=== PATIENT | male | born 1985 | race Caucasian/White ===

== ENCOUNTER 2022-03-12 12:53 | Emergency (ER) | payer BC ==
--- NOTE | 2022-03-12 12:56 | ERPHSYRPT ---
- History of Present Illness Time Seen by Provider: 03/12/22 12:56 Source: patient Exam Limitations: no limitations Physician History: This is a right-handed white male who was working with heavy shoveling equipment prior to arrival and the equipment kicked back extending the patient's left thumb to a significant degree towards the ulnar side of the left wrist. Patient has a lot of pain in the left thumb area but also has pain when attempting to flex or extend his left hand. There are no lacerations. Patient states he does not want any narcotics at this time. Occurred: just prior to arrival Method of Injury: other (Work equipment injury) Quality: constant, aching, throbbing Severity of Pain-Max: moderate Severity of Pain-Current: moderate Extremities Pain Location: hand: left (But primarily at the thumb) Modifying Factors: Improves With: movement (Worsens) Associated Symptoms: none Allergies/Adverse Reactions: No Known Drug Allergies Allergy (Verified 03/12/22 13:07) Travel Risk - International Travel Have you traveled outside of the country in past 3 weeks: No - Coronavirus Screening Are you exhibiting any of the following symptoms?: No Close contact with a COVID-19 positive Pt in past 14-21 Days: No - Review of Systems Constitutional: No Symptoms Eyes: No Symptoms Ears, Nose, & Throat: No Symptoms Respiratory: No Symptoms Cardiac: No Symptoms Abdominal/Gastrointestinal: No Symptoms Genitourinary Symptoms: No Symptoms Musculoskeletal: Injury (Left hand/thumb), Joint Pain (Left from) Skin: No Symptoms Neurological: No Symptoms Psychological: No Symptoms Endocrine: No Symptoms Hematologic/Lymphatic: No Symptoms Immunological/Allergic: No Symptoms All Other Systems: Reviewed and Negative - Past Medical History Pertinent Past Medical History: Yes - Past Surgical History Past Surgical History: Yes - Nursing Vital Signs Nursing Vital Signs: Initial Vital Signs Temperature 98 F 03/12/22 13:08 Pulse Rate 68 03/12/22 13:08 Respiratory Rate 19 03/12/22 13:08 Blood Pressure 112/74 03/12/22 13:08 O2 Sat by Pulse Oximetry 99 03/12/22 13:08 Pain Scale Pain Intensity 7 - Physical Exam General Appearance: no apparent distress, alert, anxiety Eyes, Ears, Nose, Throat Exam: normal ENT inspection, moist mucous membranes Neck Exam: normal inspection, non-tender, supple, full range of motion Cardiovascular/Respiratory Exam: chest non-tender, no respiratory distress Abdominal Exam: non-tender Back Exam: normal inspection, normal range of motion, No CVA tenderness, No vertebral tenderness Shoulder Exam: normal inspection, non-tender, no evidence of injury, normal ROM Elbow/Forearm Exam: normal inspection, non-tender, no evidence of injury, normal ROM Wrist Exam: normal inspection, non-tender, no evidence of injury, normal ROM Hand Exam: bone tenderness, limited ROM, soft tissue tenderness (Neurovascularly intact. Unable to fully examine the tendon function because patient states he has significant pain flexing or extending all digits of the left hand) Neuro/Tendon Exam: normal sensation, responds to pain Mental Status Exam: alert, oriented x 3, cooperative Skin Exam: normal color, warm, dry SpO2 Interpretation: normal O2 Delivery: Room Air - Course Nursing assessment & vital signs reviewed: Yes Ordered Tests: Active Orders 24 hr Category Date Time Status HAND (MINIMUM 3 VIEWS) Stat Exams 03/12/22 13:21 Taken - Progress Progress: unchanged Progress Note: 03/12/22 13:55 X-ray of left hand shows no acute fracture or dislocation Counseled pt/family regarding: diagnosis, need for follow-up, rad results - Departure Departure Disposition: Home Clinical Impression: Thumb sprain Condition: Stable Critical Care Time: No Referrals: ALLYSON VELASQUEZ MD [Primary Care Provider] - Follow up/PCP as directed Additional Instructions: Ice pack to area 3 times a day for the next 48 hours. Add ibuprofen 600 mg with food 3 times a day for the next 5 days. Follow-up with Dr. Griffin, hand surgeon out of [facility] on 03/14/2022 by phone to make arrangements for a follow-up appointment for further evaluation management. Prescriptions: Oxycodone HCl/Acetaminophen [Percocet 5-325 mg Tablet] 1 each PO Q8H PRN PRN #6 tablet MDD 3 PRN Reason: Moderate To Severe Pain
[2022-03-12 13:18] VITALS: O2SAT 99
[2022-03-12 14:13] VITALS: BP 99/67; PULSE 72
--- NOTE | 2022-03-12 20:41 | XRAY ---
Indication: Thumb hyperextension. Comparison: None 3 view left hand obtained. No bony, articular, or soft tissue abnormalities.
== END 2022-03-12 14:23 | disposition home or self-care (01) ==
LOC: ED 12:53
DX: S63.602A Unspecified sprain of left thumb, initial encounter (principal); W31.89XA Contact with other specified machinery, initial encounter; Z79.891 Long term (current) use of opiate analgesic
CPT/HCPCS: 73130; 99283; A4570